=== PATIENT | female | born 1965 | race Caucasian/White ===

== ENCOUNTER → 2021-04-04 | Outpatient (CLI) | payer BC ==
[2021-04-04 09:59] LABS: HEMOGLOBIN 13.2 gm/dl (12.3-15.3); RED BLOOD COUNT 4.49 M/UL (4.00-5.10); WHITE BLOOD COUNT 3.2 K/UL (4.5-11.0)
[2021-04-04 10:08] LABS: BUN/CREATININE RATIO 12 (0-10)
== END ==
LOC: LAB 09:13
PROVIDERS: Internal Medicine
DX: M19.071 Primary osteoarthritis, right ankle and foot (principal); M32.9 Systemic lupus erythematosus, unspecified; M25.50 Pain in unspecified joint; R76.8 Other specified abnormal immunological findings in serum; L50.8 Other urticaria; Z92.29 Personal history of other drug therapy
CPT/HCPCS: 36415; 73610; 80053; 81001; 82570; 84156; 85025